=== PATIENT | female | born 1980 ===

== ENCOUNTER 2018-06-21 06:22 | Day surgery (SDC) | payer BC ==
[~2018-06-21 06:22] MED LIST: Buffered Lidocaine 0.9% SYRIN* 5 ML/SYR SYRINGE INTRADERM ONE
[2018-06-21] MEDS ORDERED: Lidocaine 1% INJ* 10 MG/ML 30 ML SDV ONE (07:14)
[2018-06-21] MEDS ORDERED: fentaNYL* 50 MCG/ML 2 ML VIAL (100 MCG VIAL) ONE (07:23)
[2018-06-21] MEDS ORDERED: Propofol* 10 MG/ML 20 ML BTL IV PUSH ONE (07:24)
[2018-06-21] MEDS ORDERED: Lidocaine 2% PF * 5 ML VIAL ONE (07:24)
[2018-06-21] MEDS ORDERED: Naloxone* 0.4 MG/ML 1 ML VIAL IV PRN (08:08)
[2018-06-21 08:39] VITALS: BP 135/83
--- NOTE | 2018-06-22 02:52 | OP ---
DATE OF OPERATION: 06/21/18 [facility] DATE OF : 76 SURGEON: Gloria Larson MD VOLUNTEER PATIENT REPRESENTATIVE: MINE Cook ANESTHESIA: Local MAC. PRE-OP DIAGNOSIS: Median and ulnar nerve compression of the right wrist. POST-OP DIAGNOSIS: Median and ulnar nerve compression of the right wrist. OPERATIVE PROCEDURE: Median and ulnar nerve decompression of the right wrist. ESTIMATED BLOOD LOSS: Zero. TOURNIQUET TIME: About 20 minutes. INDICATIONS: Beti is a 38-year-old female with numbness and tingling in her right hand. On exam, she has positive Tinel's sign of the ulnar nerve at the wrist and the median nerve at the wrist. She presents for median and ulnar nerve decompression of the right wrist. DESCRIPTION OF PROCEDURE: The patient was brought to the operating room, was given a sedation anesthetic and a local infiltration of 10 cc of 1% plain lidocaine in the palm of her right hand. The skin of her right hand and forearm were prepped and draped in the usual sterile fashion. The hand and forearm were exsanguinated and the tourniquet elevated to 250 mmHg. A longitudinal incision was made in the palm in line with the right finger. We dissected through the subcutaneous tissue down to the transverse carpal ligament. The ligament was divided sharply with a knife and then more proximally with the scissors. Incision was then extended proximally diagonally across the wrist creases and I located the ulnar nerve adjacent to the FCU tendon. It was carefully dissected out distally and proximally in the forearm through Guyon's canal and was completely released. The wound was irrigated and skin edges were reapproximated with a 4-0 nylon suture. The wound was dressed with Xeroform, 4x4, Webril, and an Nain wrap. The patient tolerated the procedure well, was brought to the recovery room in good condition. [id number] #: [id number] MTDD
== END 2018-06-21 08:35 | disposition home or self-care (01) ==
LOC: OREAST 06:22
PROVIDERS: ATTEND Orthopaedic Surgery
DX: G56.01 Carpal tunnel syndrome, right upper limb (principal); G56.21 Lesion of ulnar nerve, right upper limb; J45.909 Unspecified asthma, uncomplicated; F41.8 Other specified anxiety disorders; M19.90 Unspecified osteoarthritis, unspecified site; Z68.39 Body mass index [BMI] 39.0-39.9, adult
CPT/HCPCS: J2704; J3010